=== PATIENT | female | born 2000 | race Caucasian/White ===

== ENCOUNTER 2024-04-28 16:04 | Emergency (ER) | payer MEDICAID ==
[~2024-04-28] VITALS: Ht 160 cm; Wt 69.7 kg
[~2024-04-28 16:04] MED LIST: RIZA-5 PO
[2024-04-28 17:08] VITALS: BP 124/81; PULSE 93; RESP 18; TEMP 97.8; O2SAT 100
== END 2024-04-28 18:55 | disposition home or self-care (01) ==
LOC: ER 16:05
DX: G43.909 Migraine, unspecified, not intractable, without status migrainosus (principal); Z00.00 Encounter for general adult medical examination without abnormal findings; Z88.1 Allergy status to other antibiotic agents; Z79.899 Other long term (current) drug therapy
CPT/HCPCS: 99281

== ENCOUNTER 2025-10-28 16:30 | Emergency (ER) | payer MEDICAID ==
[~2025-10-28] VITALS: Ht 160 cm; Wt 75.6 kg
[2025-10-28 16:33] VITALS: BP 127/67; PULSE 121; RESP 16; TEMP 98.7; O2SAT 100
--- NOTE | 2025-10-28 16:38 | Physician Documentation ---
History of Present Illness ~ General Chief Complaint: General Stated Complaint: Primary Medical Doctor: was last in the ER in [place] was there two weeks ago History of Present Illness Initial Comments Patient is a very pleasant 25-year-old female that presents to the emergency department for evaluation of needing a test. Patient reports that she was seen at urgent care 2 times today each time he told her they did not have time to see her and that they were closing and not taking new patients. Patient simply needs a test no symptoms no concerns physical ailments psychiatric ailments or any other symptoms reported at this time. Medication Reconciliation Allergies: Coded Allergies: cephalexin (Verified Allergy, Intermediate, SWELLING AND RASH, 10/28/25) Scheduled PRN Rizatriptan Benzoate (Maxalt), 1 TAB PO UD PRN for MIGRAINE HEADACHE Past Medical History Past Medical History: Migraine, Anemia Past Surgical History: no surgical history Alcohol Use: None Drug Use: none Lives with: S/O Lives In: Home Occupation: employed Physical Exam Physical Exam Vital Signs: Temperature: 98.7, Source: Oral, Heart Rate: 121, Respiratory Rate: 16, BP: 127/67, Pulse Oximetry: 100, Weight: 75.600 Oxygen Flow Rate: 0 Progress Results/Orders Results/Orders Vital Signs 10/28/25 16:33 Temp 98.7 Pulse 121 Resp 16 B/P (MAP) 127/67 Pulse Ox 100 O2 Flow Rate 0 Departure Referrals: NO PRIMARY CARE PROVIDER (PCP) KLEBER NGUYEN Oct 28, 2025 16:38
[2025-10-28 17:10] LABS: LEUKOCYTE ESTERASE ,URINE NEGATIVE (Neg); NITRITES, URINE NEGATIVE (Neg); OCCULT BLOOD,URINE SMALL (Neg)
[2025-10-28 17:11] LABS: URINE HCG NEGATIVE (NEG)
[2025-10-28 17:13] LABS: UA COLLECTION TYPE CLN CATCH MIDSTREAM
[2025-10-28 17:22] LABS: MUCUS STRANDS NONE SEEN /LPF (Neg); SQUAMOUS EPITHELIAL CELL,UR MODERATE /LPF (FEW)
== END 2025-10-28 18:16 | disposition left against medical advice (07) ==
LOC: ER 16:31
DX: Z32.00 Encounter for pregnancy test, result unknown (principal); G43.909 Migraine, unspecified, not intractable, without status migrainosus; D64.9 Anemia, unspecified; Z53.21 Procedure and treatment not carried out due to patient leaving prior to being seen by health care provider; Z88.1 Allergy status to other antibiotic agents
CPT/HCPCS: 81001; 81025; 99282; 99283